=== PATIENT | male | born 1950 | race Native Hawaiian/Other Pacific Islander ===

== ENCOUNTER 2018-07-15 10:13 | Emergency (ER) | payer BC, OTHER ==
[~2018-07-15] VITALS: Ht 182.9 cm; Wt 127.0 kg
[~2018-07-15 10:13] MED LIST: EQ ASPIRIN325 MG PO; METOPROL TAR100 MG PO; SIMV20TA2 PO; VALS160T PO; VIMOVO1 TA1 PO; VITAMIN C500 M4 PO; VITAMIN D3400 UNIT PO
[2018-07-15 10:59] LABS: POTASSIUM 3.9 mmol/L (3.6-5.2); SODIUM 137 mmol/L (136-145)
[2018-07-15 11:08] LABS: PLATELET COUNT 245 K/uL (142-355)
[2018-07-15 12:00] VITALS: BP 153/89; TEMP 98
== END 2018-07-15 12:00 | disposition home or self-care (01) ==
LOC: ED 10:13
DX: R07.89 Other chest pain (principal)
CPT/HCPCS: 36415; 80053; 81000; 82150; 82550; 82553; 83036; 83690; 84484; 85027; 85651; 86318; 93005; 96374; 99284; J1885

== ENCOUNTER 2018-10-28 07:16 | Day surgery (SDC) | payer BC, OTHER ==
[~2018-10-28] VITALS: Ht 30.5 cm; Wt 0.5 kg
[2018-10-28 09:05] LABS: PLATELET COUNT 243 K/uL (142-355)
[2018-10-28 09:06] LABS: POTASSIUM 4.5 mmol/L (3.6-5.2)
== END 2018-10-28 13:30 | disposition home or self-care (01) ==
LOC: OR 07:16
PROVIDERS: Internal Medicine
PROC: 0DBK8ZZ Excision of Ascending Colon, Via Natural or Artificial Opening Endoscopic (ICD-10-PCS; principal; 2018-10-28)
PROC: 0DBL8ZZ Excision of Transverse Colon, Via Natural or Artificial Opening Endoscopic (ICD-10-PCS; 2018-10-28)
PROC: 0DBN8ZZ Excision of Sigmoid Colon, Via Natural or Artificial Opening Endoscopic (ICD-10-PCS; 2018-10-28)
PROC: 0DBM8ZZ Excision of Descending Colon, Via Natural or Artificial Opening Endoscopic (ICD-10-PCS; 2018-10-28)
PROC: 0DBH8ZZ Excision of Cecum, Via Natural or Artificial Opening Endoscopic (ICD-10-PCS; 2018-10-28)
DX: D12.2 Benign neoplasm of ascending colon (principal); D12.0 Benign neoplasm of cecum; D12.4 Benign neoplasm of descending colon; D12.5 Benign neoplasm of sigmoid colon; D12.3 Benign neoplasm of transverse colon; K57.30 Diverticulosis of large intestine without perforation or abscess without bleeding; K64.4 Residual hemorrhoidal skin tags; Z12.11 Encounter for screening for malignant neoplasm of colon
CPT/HCPCS: 80053; 85027; J2001; J2250; J2704

== ENCOUNTER 2019-01-12 17:30 | Outpatient (CLI) | payer BC, OTHER | END 2019-01-12 23:29 | disposition home or self-care (01) | LOC: RAD 17:30 | DX: Z01.818 Encounter for other preprocedural examination (principal) | CPT/HCPCS: 93005 ==

== ENCOUNTER 2020-04-11 09:03 | Outpatient (CLI) | payer BC, OTHER | END 2020-04-11 22:48 | disposition home or self-care (01) | LOC: RAD 09:03 | DX: M47.22 Other spondylosis with radiculopathy, cervical region (principal) ==

== ENCOUNTER 2020-07-23 09:26 | Outpatient (CLI) | payer OTHER | END 2020-07-23 19:21 | disposition home or self-care (01) | LOC: RESP 09:26 | PROVIDERS: ATTEND Nurse Practitioner Family | DX: R94.31 Abnormal electrocardiogram [ECG] [EKG] (principal) ==

== ENCOUNTER 2020-07-26 07:45 | Outpatient (CLI) | payer OTHER ==
[~2020-07-26] VITALS: Ht 182.9 cm; Wt 117.9 kg
== END 2020-07-26 20:36 | disposition home or self-care (01) ==
LOC: NM 07:45
PROVIDERS: ATTEND Nurse Practitioner Family
DX: R94.31 Abnormal electrocardiogram [ECG] [EKG] (principal)
CPT/HCPCS: A9500; J2785

== ENCOUNTER 2021-05-20 08:05 | Outpatient (CLI) | payer OTHER ==
[2021-05-20 08:52] LABS: PLATELET COUNT 174 K/uL (142-355)
[2021-05-20 09:37] LABS: POTASSIUM 4.2 mmol/L (3.6-5.2)
== END 2021-05-20 21:46 | disposition home or self-care (01) ==
LOC: LABW 08:05
PROVIDERS: ATTEND Internal Medicine
DX: N18.31 Chronic kidney disease, stage 3a (principal); M10.09 Idiopathic gout, multiple sites; R53.83 Other fatigue; R79.89 Other specified abnormal findings of blood chemistry
CPT/HCPCS: 36415; 80053; 81000; 82306; 82330; 82570; 82607; 82728; 82746; 82955; 83036; 83540; 83550; 83735; 83970; 84100; 84155; 84439; 84443; 84550; 85027; 85041; 85652; 86038; 86430

== ENCOUNTER 2021-05-21 07:59 | Outpatient (CLI) | payer OTHER | END 2021-05-21 20:18 | disposition home or self-care (01) | LOC: US 07:59 | PROVIDERS: ATTEND Internal Medicine | DX: N18.31 Chronic kidney disease, stage 3a (principal) ==

== ENCOUNTER 2022-03-11 10:49 | Outpatient (CLI) | payer OTHER ==
[2022-03-11 11:22] LABS: PLATELET COUNT 132 K/uL (142-355)
[2022-03-11 11:41] LABS: POTASSIUM 4.3 mmol/L (3.6-5.2)
== END 2022-03-11 18:50 | disposition home or self-care (01) ==
LOC: LABW 10:49
PROVIDERS: ATTEND Internal Medicine
DX: N18.31 Chronic kidney disease, stage 3a (principal); M10.09 Idiopathic gout, multiple sites; R53.83 Other fatigue; Z79.899 Other long term (current) drug therapy; E53.8 Deficiency of other specified B group vitamins; E78.49 Other hyperlipidemia; R79.89 Other specified abnormal findings of blood chemistry
CPT/HCPCS: 36415; 80053; 80061; 81000; 82330; 82570; 82607; 82746; 83036; 83540; 83550; 83735; 83970; 84100; 84156; 84439; 84443; 84550; 85027

== ENCOUNTER 2022-08-27 07:56 | Outpatient (CLI) | payer OTHER ==
[2022-08-27 08:24] LABS: PLATELET COUNT 133 K/uL (142-355)
== END 2022-08-27 19:12 | disposition home or self-care (01) ==
LOC: LABW 07:56
PROVIDERS: ATTEND Internal Medicine
DX: I12.9 Hypertensive chronic kidney disease with stage 1 through stage 4 chronic kidney disease, or unspecified chronic kidney disease (principal); N18.31 Chronic kidney disease, stage 3a; M10.09 Idiopathic gout, multiple sites; R53.83 Other fatigue; E11.9 Type 2 diabetes mellitus without complications; F51.01 Primary insomnia; E78.49 Other hyperlipidemia; E55.9 Vitamin D deficiency, unspecified; G62.89 Other specified polyneuropathies; Z79.899 Other long term (current) drug therapy; G47.00 Insomnia, unspecified; F41.8 Other specified anxiety disorders; N28.89 Other specified disorders of kidney and ureter; M19.90 Unspecified osteoarthritis, unspecified site
CPT/HCPCS: 36415; 80053; 80061; 81000; 82306; 82330; 82570; 82607; 82746; 83036; 83540; 83550; 83735; 83970; 84100; 84156; 84439; 84443; 84550; 85027

== ENCOUNTER 2023-02-25 08:12 | Outpatient (CLI) | payer OTHER ==
[2023-02-25 08:48] LABS: PLATELET COUNT 150 K/uL (142-355)
== END 2023-02-25 21:17 | disposition home or self-care (01) ==
LOC: LABW 08:12
PROVIDERS: ATTEND Internal Medicine
DX: I12.9 Hypertensive chronic kidney disease with stage 1 through stage 4 chronic kidney disease, or unspecified chronic kidney disease (principal); N18.31 Chronic kidney disease, stage 3a; M10.09 Idiopathic gout, multiple sites; R53.83 Other fatigue; G47.30 Sleep apnea, unspecified; E11.9 Type 2 diabetes mellitus without complications; F41.8 Other specified anxiety disorders; F51.01 Primary insomnia; E78.49 Other hyperlipidemia; E55.9 Vitamin D deficiency, unspecified; G62.89 Other specified polyneuropathies
CPT/HCPCS: 36415; 80053; 80061; 81000; 82306; 82330; 82570; 82607; 82746; 83036; 83540; 83550; 83735; 83970; 84100; 84156; 84439; 84443; 84550; 85027